=== PATIENT | female | born 1985 | race Caucasian/White ===

== ENCOUNTER 2017-06-15 09:41 | Inpatient (IN) | payer BC ==
[2017-06-15] VITALS (18 sets, daily range): BP systolic 94–126; BP diastolic 52–77; PULSE 80–120; TEMP 97.9–98.2
[~2017-06-15] VITALS: Ht 180.3 cm; Wt 86.8 kg
[2017-06-15] MEDS ORDERED: PRENATAL1 TA7 PO (09:43)
[2017-06-15 11:32] LABS: BASO % 0.2 % (0.0-2.0); EOS % 0.1 % (0-4.0); GRAN # 11.6 (1.4-6.5); GRAN % 86.3 % (42.2-75.2); HEMATOCRIT 40.1 % (37.0-47.0); HEMOGLOBIN 13.8 g/dl (12.5-16.0); LYMPH % 7.7 % (20.0-51.0); MEAN CELL VOLUME 90 fl (80.0-100.0); MEAN CORPUSCULAR HEMOGLOBIN 31 pg (27.0-31.0); MEAN CORPUSCULAR HGB CONC 34 g/dl (33.0-37.0); MEAN PLATELET VOLUME 11.2 fl (7.4-10.4); MONO # 0.7 (0.1-0.6); MONO % 5.1 % (1.7-9.3); PLATELET COUNT 177 K/mm3 (130-400); RED BLOOD COUNT 4.46 M/mm3 (4.10-5.30); REDCELL DISTRIBUTION WIDTH-CV 13.1 % (11.5-14.5)
[2017-06-15 15:16] LABS: BASO % 0.2 % (0.0-2.0); GRAN % 93.5 % (42.2-75.2); HEMOGLOBIN 12.2 g/dl (12.5-16.0); LYMPH # 0.5 (1.2-3.4); LYMPH % 2.5 % (20.0-51.0); MEAN CELL VOLUME 89 fl (80.0-100.0); MEAN CORPUSCULAR HEMOGLOBIN 31 pg (27.0-31.0); MEAN CORPUSCULAR HGB CONC 35 g/dl (33.0-37.0); MEAN PLATELET VOLUME 10.8 fl (7.4-10.4); MONO # 0.6 (0.1-0.6); MONO % 3.3 % (1.7-9.3); PLATELET COUNT 177 K/mm3 (130-400); RED BLOOD COUNT 3.96 M/mm3 (4.10-5.30)
[2017-06-15 15:23] LABS: HEMATOCRIT 35.2 % (37.0-47.0)
[2017-06-16 01:00] VITALS: BP 98/50; PULSE 97; TEMP 97.9
[2017-06-16 07:30] VITALS: BP 114/66; PULSE 87; TEMP 98.7
[2017-06-16] MEDS ORDERED: IBU600 MG PO (14:00)
== END 2017-06-16 16:00 | disposition home or self-care (01) | DRG 767 ==
LOC: LDRO 09:41 → LDR 10:08 → OB 18:30 → EDSTATUS 06-26 09:38 → LDR 06-26 11:28
PROVIDERS: Obstetrics & Gynecology
PROC: 10E0XZZ Delivery of Products of Conception, External Approach (ICD-10-PCS; principal; 2017-06-15)
PROC: 10D17Z9 Manual Extraction of Products of Conception, Retained, Via Natural or Artificial Opening (ICD-10-PCS; 2017-06-15)
PROC: 0KQM0ZZ Repair Perineum Muscle, Open Approach (ICD-10-PCS; 2017-06-15)
DX: O48.0 Post-term pregnancy (principal); O72.1 Other immediate postpartum hemorrhage; O70.1 Second degree perineal laceration during delivery; Z3A.40 40 weeks gestation of pregnancy; Z37.0 Single live birth
CPT/HCPCS: J0690; J2210; J2270; J2405; J2590; J2791; J7120

== ENCOUNTER → 2017-06-26 | Outpatient (CLI) | payer BC ==
[~2017-06-26] MED LIST: IBU600 MG PO; PRENATAL1 TA7 PO
== END ==
LOC: OLC 11:05
DX: Z39.1 Encounter for care and examination of lactating mother (principal); Z71.89 Other specified counseling